=== PATIENT | male | born 1960 | race Caucasian/White ===

== ENCOUNTER → 2017-02-04 | Outpatient (CLI) | payer BC ==
[2017-02-04 10:29] LABS: ALBUMIN 3.2 GM/DL (3.2-5.2); ALBUMIN/GLOBULIN RATIO 0.73 (1.00-1.93); ALKALINE PHOSPHATASE 89 U/L (45-117); ALT/SGPT 32 U/L (12-78); ANION GAP 9 MEQ/L (8-16); AST/SGOT 23 U/L (15-37); BILIRUBIN,TOTAL 0.5 MG/DL (0.2-1.0); BLOOD UREA NITROGEN 17 MG/DL (7-18); CALCIUM LEVEL 8.9 MG/DL (8.5-10.1); CARBON DIOXIDE LEVEL 27 MEQ/L (21-32); CHLORIDE LEVEL 102 MEQ/L (98-107); CHOLESTEROL LEVEL 144 MG/DL (<200); CREATININE FOR GFR 1.18 MG/DL (0.70-1.30); GLOMERULAR FILTRATION RATE > 60.0 (>56); GLUCOSE, FASTING 107 MG/DL (70-105); POTASSIUM SERUM 4.3 MEQ/L (3.5-5.1); SODIUM LEVEL 138 MEQ/L (136-145); TOTAL PROTEIN 7.6 GM/DL (6.4-8.2); TRIGLYCERIDES LEVEL 120 MG/DL (<150)
== END ==
LOC: M WUC 08:27
PROVIDERS: ATTEND Physician Assistant
DX: E11.9 Type 2 diabetes mellitus without complications (principal); I10 Essential (primary) hypertension; E78.5 Hyperlipidemia, unspecified

== ENCOUNTER → 2017-05-06 | Outpatient (CLI) | payer BC ==
[~2017-05-06] VITALS: Ht 170.2 cm; Wt 131.5 kg
[~2017-05-06] MED LIST: BISO5TAB2 PO; LEVO50TA5 PO; LIDOCAINE 2% INJ 100 MG/5 ML SDV (FOR ANES.) As Ordered ONE; METF500T13 PO; NS 1,000 ML IV SCH; PRAV10TA3 PO; PROPOFOL 200 MG/20 ML VIAL As Ordered ONE
--- NOTE | 2017-05-06 12:29 | ROOR ---
Patient Name: Kameron Boss Procedure Date: 05/06/2017 12:04 PM Date of : 1960 Age: 56 Room: [facility] Gender: Male Note Status: Finalized Procedure: Colonoscopy Indications: Screening for colorectal malignant neoplasm Providers: Donovan PATEL MD Referring MD: EUGENE MARES Requesting Provider: Medicines: Monitored Anesthesia Care Complications: No immediate complications. Procedure: Pre-Anesthesia Assessment: - The heart rate, respiratory rate, oxygen saturations, blood pressure, adequacy of pulmonary ventilation, and response to care were monitored throughout the procedure. The Colonoscope was introduced through the anus and advanced to the cecum, identified by appendiceal orifice and ileocecal valve. The colonoscopy was performed without difficulty. The patient tolerated the procedure well. The quality of the bowel preparation was good. Findings: The perianal and digital rectal examinations were normal. A 4 mm polyp was found in the ascending colon. The polyp was sessile. The polyp was removed with a cold snare. Resection and retrieval were complete. Three semi-sessile polyps were found in the sigmoid colon. The polyps were 4 to 6 mm in size. These polyps were removed with a cold snare. Resection and retrieval were complete. To prevent bleeding after the polypectomy, one hemostatic clip was successfully placed (MR conditional). There was no bleeding at the end of the procedure. A single suture granuloma was found in the distal rectum. This was biopsied with a cold forceps for histology. Internal hemorrhoids were found during retroflexion. The hemorrhoids were medium-sized. Impression: - One 4 mm polyp in the ascending colon, removed with a cold snare. Resected and retrieved. - Three 4 to 6 mm polyps in the sigmoid colon, removed with a cold snare. Resected and retrieved. Clip (MR conditional) was placed. - Protruding polypoid fold likely represents suture granuloma/scarring related to previous anal/rectal surgery in the distal rectum. Biopsied. - Internal hemorrhoids. Recommendation: - Telephone endoscopist for pathology results in 2 weeks. - Repeat colonoscopy in 3 years for surveillance. Donovan Patel MD Donovan PATEL MD 05/06/2017 12:29:46 PM This report has been signed electronically. Number of Addenda: 0 Note Initiated On: 05/06/2017 12:04 PM Estimated Blood Loss: Estimated blood loss: none.
[2017-05-06 12:45] VITALS: BP 126/82
== END | disposition home or self-care (01) ==
LOC: M OPP 10:47
PROVIDERS: ATTEND Internal Medicine Gastroenterology
DX: Z12.11 Encounter for screening for malignant neoplasm of colon (principal); K63.5 Polyp of colon; D12.5 Benign neoplasm of sigmoid colon; K64.8 Other hemorrhoids; T81.89XA Other complications of procedures, not elsewhere classified, initial encounter; Y83.8 Other surgical procedures as the cause of abnormal reaction of the patient, or of later complication, without mention of misadventure at the time of the procedure; I10 Essential (primary) hypertension; E78.5 Hyperlipidemia, unspecified; E11.9 Type 2 diabetes mellitus without complications; E03.9 Hypothyroidism, unspecified; K21.9 Gastro-esophageal reflux disease without esophagitis; G47.30 Sleep apnea, unspecified; F17.290 Nicotine dependence, other tobacco product, uncomplicated; Z79.899 Other long term (current) drug therapy; Z79.52 Long term (current) use of systemic steroids; Z88.1 Allergy status to other antibiotic agents

== ENCOUNTER → 2017-06-17 | Outpatient (CLI) | payer BC ==
[~2017-06-17] MED LIST changes: -LIDOCAINE 2% INJ 100 MG/5 ML SDV (FOR ANES.) As Ordered ONE; -NS 1,000 ML IV SCH; -PROPOFOL 200 MG/20 ML VIAL As Ordered ONE
--- NOTE | 2017-06-17 14:20 | REP ---
SCROTAL ULTRASOUND: Real-time sonographic evaluation of the scrotum and contents performed. The testicles appear normal in size and echotexture with no mass or torsion. Right testicle measures 3.6 x 2.1 x 2.7 cm and left testicle 3.3 x 2.0 x 2.7 cm. There is a tiny cyst in the head of the right epididymis measuring 4 x 6 mm. Inferior right scrotal wall is edematous. There is reportedly an open wound in this region with a tiny amount of complex fluid just beneath the would with a diameter of 7 mm. Reportedly this wound is draining. Intrascrotal fat in this region is inflamed and edematous. There appears to be a small right inguinal hernia containing fat. IMPRESSION: Inferior right scrotum is thickened and edematous with the intrascrotal fat deep to this area also diffusely edematous. There is reportedly a draining wound in this region, and there is a very small amount of complex fluid just deep to the wound 7 mm in diameter. No testicular mass or torsion. Small right inguinal hernia contains fat. Signed by Kendell Bearden MD 06/17/2017 04:45 P
== END ==
LOC: M RAD 12:01
PROVIDERS: ATTEND Physician Assistant
DX: N50.82 Scrotal pain (principal); N50.89 Other specified disorders of the male genital organs

== ENCOUNTER 2017-09-12 10:04 | Day surgery (SDC) | payer BC ==
[~2017-09-12] VITALS: Ht 170.2 cm; Wt 125.2 kg
[2017-09-12] MEDS ORDERED: PROPOFOL 200 MG/20 ML VIAL As Ordered ONE (10:23)
[2017-09-12] MEDS ORDERED: PREV15CA18 PO (10:23)
[2017-09-12] MEDS ORDERED: LIDOCAINE 2% INJ 100 MG/5 ML SDV (FOR ANES.) As Ordered ONE (10:23)
[2017-09-12] MEDS ORDERED: NS 1,000 ML IV ONE (10:30)
--- NOTE | 2017-09-12 11:44 | ROOR ---
Patient Name: Kameron Boss Procedure Date: 09/12/2017 11:30 AM Date of : 1960 Age: 57 Room: [facility] Gender: Male Note Status: Finalized Procedure: Upper GI endoscopy Indications: Heartburn Providers: Donovan PATEL MD Referring MD: EUGENE MARES Requesting Provider: Medicines: Monitored Anesthesia Care Complications: No immediate complications. Procedure: Pre-Anesthesia Assessment: - The heart rate, respiratory rate, oxygen saturations, blood pressure, adequacy of pulmonary ventilation, and response to care were monitored throughout the procedure. The Endoscope was introduced through the mouth, and advanced to the second part of duodenum. The upper GI endoscopy was accomplished without difficulty. The patient tolerated the procedure well. Findings: The Z-line was variable and was found 38 cm from the incisors. This was biopsied with a cold forceps for histology. The examined esophagus was normal. The entire examined stomach was normal. The examined duodenum was normal. Impression: - Z-line variable, 38 cm from the incisors. Biopsied to r/o short segment barretts. - Normal esophagus. - Normal stomach. - Normal examined duodenum. Recommendation: - Continue present medications. - Await pathology results. - Telephone endoscopist for pathology results in 2 weeks. Donovan Patel MD Donovan PATEL MD 09/12/2017 11:44:12 AM This report has been signed electronically. Number of Addenda: 0 Note Initiated On: 09/12/2017 11:30 AM Estimated Blood Loss: Estimated blood loss: none.
[2017-09-12 12:05] VITALS: BP 124/72
== END 2017-09-12 12:25 | disposition home or self-care (01) ==
LOC: M OPP 10:04
PROVIDERS: ATTEND Internal Medicine Gastroenterology
DX: R12 Heartburn (principal); R07.89 Other chest pain; K22.8 Other specified diseases of esophagus; I10 Essential (primary) hypertension; E78.5 Hyperlipidemia, unspecified; E11.9 Type 2 diabetes mellitus without complications; E03.9 Hypothyroidism, unspecified; K21.9 Gastro-esophageal reflux disease without esophagitis; R06.83 Snoring; G47.30 Sleep apnea, unspecified; Z87.442 Personal history of urinary calculi; F17.290 Nicotine dependence, other tobacco product, uncomplicated; Z88.1 Allergy status to other antibiotic agents; Z79.899 Other long term (current) drug therapy; Z80.3 Family history of malignant neoplasm of breast

== ENCOUNTER → 2018-09-03 | Outpatient (CLI) | payer BC | LOC: M WUC 14:34 | DX: R01.1 Cardiac murmur, unspecified (principal); I35.9 Nonrheumatic aortic valve disorder, unspecified; I10 Essential (primary) hypertension | CPT/HCPCS: 71046 ==

== ENCOUNTER → 2018-10-22 | Outpatient (REF) | payer BC ==
[~2018-10-22] MED LIST changes: +PREV15CA18 PO
== END ==
LOC: M LAB REF 11:41
PROVIDERS: ATTEND Physician Assistant
DX: J02.9 Acute pharyngitis, unspecified (principal)

== ENCOUNTER → 2019-07-19 | Outpatient (CLI) | payer BC ==
--- NOTE | 2019-07-20 02:13 | REP ---
Clinical: Pain. Technique: AP, lateral, bilateral oblique and sunrise views of the right knee. Findings: Mild/early moderate arthritic changes include subchondral sclerosis, minimal joint space narrowing, subtle early marginal spurring/osteophyte formation involving the tibiofemoral joint as well as subchondral sclerosis, minimal joint space narrowing, lateral osteophyte, and anterior fraying involving the patella and patellofemoral joint. No acute fracture or dislocation. No definite effusion. Impression: Mild/early moderate tricompartmental arthritic degenerative changes Electronically Signed by Shan Juarez MD 07/20/2019 02:04 A
== END ==
LOC: M WUC 14:10
PROVIDERS: ATTEND Physician Assistant
DX: M17.11 Unilateral primary osteoarthritis, right knee (principal)

== ENCOUNTER → 2020-08-15 | Outpatient (CLI) | payer BC ==
--- NOTE | 2020-08-15 12:51 | REP ---
INDICATION: SOB WITH EXERTION COMPARISON: 09/03/2018 TECHNIQUE: PA and lateral. FINDINGS: The mediastinum and cardiac silhouette are normal. The lung martinez are clear and without acute consolidation, effusion, or pneumothorax. The skeletal structures are intact and normal. IMPRESSION: No acute cardiopulmonary process. If the patient remains symptomatic consider chest CT for further investigation. <Electronically signed by Shan Juarez > 08/15/20 [id number]
== END ==
LOC: M WUC 12:23
PROVIDERS: ATTEND Physician Assistant
DX: R06.02 Shortness of breath (principal)

== ENCOUNTER → 2020-09-04 | Outpatient (CLI) | payer BC | LOC: M LABSMTC 12:34 | PROVIDERS: ATTEND Anesthesiology | DX: Z01.812 Encounter for preprocedural laboratory examination (principal); Z20.828 Contact with and (suspected) exposure to other viral communicable diseases | CPT/HCPCS: C9803; U0003 ==

== ENCOUNTER 2020-09-07 07:03 | Day surgery (SDC) | payer BC ==
[~2020-09-07] VITALS: Ht 170.2 cm; Wt 106.1 kg
[~2020-09-07 07:03] MED LIST changes: +NS 1,000 ML IV ONE
[2020-09-07] MEDS ORDERED: propofoL 200 MG/20 ML VIAL As Ordered ONE (07:11)
[2020-09-07] MEDS ORDERED: LIDOCAINE 2% 100MG/5ML SDV (FOR ANES.) As Ordered ONE (07:11)
--- NOTE | 2020-09-07 07:59 | ROOR ---
Patient Name: Kameron Boss Procedure Date: 09/07/2020 7:37 AM Date of : 1960 Age: 60 Room: [facility] Gender: Male Note Status: Finalized Procedure: Colonoscopy Indications: High risk colon cancer surveillance: Personal history of colonic polyps, Last colonoscopy: April 2017 Providers: Donovan PATEL MD Referring MD: EUGENE MARES Requesting Provider: Medicines: Monitored Anesthesia Care Complications: No immediate complications. Procedure: Pre-Anesthesia Assessment: - The heart rate, respiratory rate, oxygen saturations, blood pressure, adequacy of pulmonary ventilation, and response to care were monitored throughout the procedure. The Colonoscope was introduced through the anus and advanced to the terminal ileum, with identification of the appendiceal orifice and IC valve. The colonoscopy was performed without difficulty. The patient tolerated the procedure well. The quality of the bowel preparation was good. Findings: The perianal and digital rectal examinations were normal. A 10 mm polypoid lesion was found in the distal rectum. The lesion was hyperplastic. This was biopsied with a cold forceps for histology. Mild sigmoid diverticulosis and small internal hemorrhoids. The exam was otherwise without abnormality. Impression: - Benign polypoid lesion in the distal rectum (likely surgical scar/granulation tissue). Biopsied. - Mild sigmoid diverticulosis and small internal hemorrhoids. - The examination was otherwise normal. Recommendation: - Repeat colonoscopy in 5 years for surveillance. Donovan Ptael MD Donovan PATEL MD 09/07/2020 7:58:32 AM Electronically signed by Donovan PATEL MD Number of Addenda: 0 Note Initiated On: 09/07/2020 7:37 AM Estimated Blood Loss: Estimated blood loss: none.
[2020-09-07 08:28] VITALS: BP 100/60
== END 2020-09-07 08:50 | disposition home or self-care (01) ==
LOC: M OPP 07:03
PROVIDERS: ATTEND Internal Medicine Gastroenterology
DX: Z12.11 Encounter for screening for malignant neoplasm of colon (principal); Z86.010 Personal history of colon polyps; D12.8 Benign neoplasm of rectum; K57.30 Diverticulosis of large intestine without perforation or abscess without bleeding; K64.8 Other hemorrhoids; E11.9 Type 2 diabetes mellitus without complications; G47.30 Sleep apnea, unspecified; Z79.899 Other long term (current) drug therapy; Z88.1 Allergy status to other antibiotic agents; F17.210 Nicotine dependence, cigarettes, uncomplicated

== ENCOUNTER → 2023-01-27 | Outpatient (REF) | payer BC ==
[~2023-01-27] MED LIST changes: +BISO1TAB18 PO; -BISO5TAB2 PO; -NS 1,000 ML IV ONE; -PREV15CA18 PO; +PREV15CA24 PO
[2023-01-27 12:26] LABS: HEMATOCRIT 44.7 % (42.0-52.0); HEMOGLOBIN 14.8 g/dl (13.5-17.5); MEAN CORPUSCULAR HEMOGLOBIN 31.3 pg (27.0-33.0); MEAN CORPUSCULAR HGB CONC 33.1 g/dl (32.0-36.5); MEAN CORPUSCULAR VOLUME 94.5 fl (80.0-96.0); PLATELET COUNT, AUTOMATED 182 10^3/uL (150-450); RED BLOOD COUNT 4.73 10^6/uL (4.30-6.10); WHITE BLOOD COUNT 4.4 10^3/uL (4.0-10.0)
[2023-01-27 12:33] LABS: APPEARANCE, URINE HAZY (CLEAR); BACTERIA, URINE AUTO 1+ (NEGATIVE); BILIRUBIN, URINE AUTO NEGATIVE (NEGATIVE); BLOOD, URINE BLOOD 2+ (NEGATIVE); COLOR, URINE YELLOW (YELLOW); GLUCOSE, URINE (UA) AUTO NEGATIVE (NEGATIVE); KETONE, URINE AUTO NEGATIVE (NEGATIVE); LEUKOCYTE ESTERASE, URINE AUTO 3+ (NEGATIVE); MUCUS, URINE SMALL (NEGATIVE); NITRITE, URINE AUTO POSITIVE (NEGATIVE); PROTEIN, URINE AUTO NEGATIVE (NEGATIVE); RBC, URINE AUTO 18 /HPF (0-3); SPECIFIC GRAVITY URINE AUTO 1.011 (1.002-1.035); SQUAMOUS EPITHELIAL CELL UR AU 0 /HPF (0-6); UROBILINOGEN, URINE AUTO 0.2 mg/dL (0.0-2.0); WBC, URINE AUTO 100 /HPF (0-3)
[2023-01-27 13:29] LABS: ALBUMIN 3.6 G/DL (3.2-5.2); ALKALINE PHOSPHATASE 95 U/L (46-116); ALT/SGPT 26 U/L (7.0-40); AST/SGOT 18 U/L (<34); BILIRUBIN,TOTAL 0.5 MG/DL (0.3-1.2); BLOOD UREA NITROGEN 17 MG/DL (9-23); CALCIUM LEVEL 9.3 MG/DL (8.3-10.6); CARBON DIOXIDE LEVEL 28 MMOL/L (20-31); CHLORIDE LEVEL 103 MMOL/L (98-107); CHOLESTEROL LEVEL 185 MG/DL (<200); CHOLESTEROL RISK RATIO 2.81 (<5); CREATININE FOR GFR 0.99 MG/DL (0.70-1.30); GLOMERULAR FILTRATION RATE > 60.0 (>49); GLUCOSE, FASTING 86 MG/DL (74-106); HDL CHOLESTEROL 65.8 MG/DL (>40); NON-HDL-C 119.2 MG/DL; POTASSIUM SERUM 5.2 MMOL/L (3.5-5.1); PROSTATIC SPECIFIC AG MONITOR 0.86 NG/ML (< 4.00); SODIUM LEVEL 136 MMOL/L (136-145)
[2023-01-27 14:44] LABS: THYROID STIMULATING HORMONE 2.295 uIU/ML (0.55-4.78)
[2023-01-27 19:03] LABS: LDL CHOLESTEROL 105.2 MG/DL (<100); TOTAL PROTEIN 6.9 G/DL (5.7-8.2); TRIGLYCERIDES LEVEL 70 MG/DL (<150)
== END ==
LOC: M LABDRAWC 10:55
PROVIDERS: ATTEND Physician Assistant
DX: E78.5 Hyperlipidemia, unspecified (principal); E03.9 Hypothyroidism, unspecified; R35.1 Nocturia

== ENCOUNTER → 2023-08-07 | Outpatient (REF) | payer BC ==
[2023-08-07 18:30] LABS: HEMATOCRIT 41.9 % (42.0-52.0); HEMOGLOBIN 14.4 g/dl (13.5-17.5); MEAN CORPUSCULAR HEMOGLOBIN 31.8 pg (27.0-33.0); MEAN CORPUSCULAR HGB CONC 34.4 g/dl (32.0-36.5); MEAN CORPUSCULAR VOLUME 92.5 fl (80.0-96.0); PLATELET COUNT, AUTOMATED 246 10^3/uL (150-450); RED BLOOD COUNT 4.53 10^6/uL (4.30-6.10)
[2023-08-07 18:42] LABS: ALBUMIN 3.6 G/DL (3.2-5.2); ALKALINE PHOSPHATASE 115 U/L (46-116); ALT/SGPT 22 U/L (7.0-40); AST/SGOT 19 U/L (<34); BILIRUBIN,TOTAL 0.4 MG/DL (0.3-1.2); BLOOD UREA NITROGEN 14 MG/DL (9-23); CALCIUM LEVEL 9.9 MG/DL (8.3-10.6); CARBON DIOXIDE LEVEL 27 MMOL/L (20-31); CHLORIDE LEVEL 102 MMOL/L (98-107); CHOLESTEROL LEVEL 172 MG/DL (<200); CREATININE FOR GFR 1.09 MG/DL (0.70-1.30); GLOMERULAR FILTRATION RATE > 60.0 (>49); GLUCOSE, FASTING 103 MG/DL (74-106); HDL CHOLESTEROL 61.3 MG/DL (>40); LDL CHOLESTEROL 90.5 MG/DL (<100); NON-HDL-C 110.7 MG/DL; POTASSIUM SERUM 4.4 MMOL/L (3.5-5.1); SODIUM LEVEL 137 MMOL/L (136-145); THYROID STIMULATING HORMONE 2.304 uIU/ML (0.55-4.78); TOTAL PROTEIN 7.7 G/DL (5.7-8.2); TRIGLYCERIDES LEVEL 101 MG/DL (<150)
== END ==
LOC: M LABDRAWC 17:35
PROVIDERS: ATTEND Physician Assistant
DX: E03.9 Hypothyroidism, unspecified (principal); E78.5 Hyperlipidemia, unspecified

== ENCOUNTER → 2024-01-15 | Outpatient (REF) | payer BC ==
[2024-01-15 12:00] LABS: APPEARANCE, URINE HAZY (CLEAR); BACTERIA, URINE AUTO 2+ (NEGATIVE); BILIRUBIN, URINE AUTO NEGATIVE (NEGATIVE); BLOOD, URINE BLOOD 2+ (NEGATIVE); COLOR, URINE YELLOW (YELLOW); GLUCOSE, URINE (UA) AUTO NEGATIVE (NEGATIVE); HEMATOCRIT 44.2 % (42.0-52.0); HEMOGLOBIN 15.1 g/dl (13.5-17.5); KETONE, URINE AUTO NEGATIVE (NEGATIVE); LEUKOCYTE ESTERASE, URINE AUTO 3+ (NEGATIVE); MEAN CORPUSCULAR HEMOGLOBIN 31.1 pg (27.0-33.0); MEAN CORPUSCULAR HGB CONC 34.2 g/dl (32.0-36.5); MEAN CORPUSCULAR VOLUME 90.9 fl (80.0-96.0); NITRITE, URINE AUTO NEGATIVE (NEGATIVE); PLATELET COUNT, AUTOMATED 250 10^3/uL (150-450); PROTEIN, URINE AUTO NEGATIVE (NEGATIVE); RBC, URINE AUTO 8 /HPF (0-3); RED BLOOD COUNT 4.86 10^6/uL (4.30-6.10); SQUAMOUS EPITHELIAL CELL UR AU 0 /HPF (0-6); UROBILINOGEN, URINE AUTO 0.2 mg/dL (0.0-2.0); WBC, URINE AUTO 137 /HPF (0-3); WHITE BLOOD COUNT 5.9 10^3/uL (4.0-10.0)
[2024-01-15 12:26] LABS: PROSTATIC SPECIFIC AG MONITOR 0.52 NG/ML (< 4.00)
[2024-01-15 12:30] LABS: ALBUMIN 3.6 G/DL (3.2-5.2); ALKALINE PHOSPHATASE 99 U/L (46-116); ALT/SGPT 20 U/L (7.0-40); AST/SGOT 15 U/L (<34); BILIRUBIN,TOTAL 0.5 MG/DL (0.3-1.2); BLOOD UREA NITROGEN 16 MG/DL (9-23); CALCIUM LEVEL 9.6 MG/DL (8.3-10.6); CARBON DIOXIDE LEVEL 29 MMOL/L (20-31); CHLORIDE LEVEL 106 MMOL/L (98-107); CHOLESTEROL LEVEL 174 MG/DL (<200); CREATININE FOR GFR 1.07 MG/DL (0.70-1.30); GLOMERULAR FILTRATION RATE > 60.0 (>49); GLUCOSE, FASTING 97 MG/DL (74-106); HDL CHOLESTEROL 52.6 MG/DL (>40); LDL CHOLESTEROL 110.2 MG/DL (<100); NON-HDL-C 121.4 MG/DL; POTASSIUM SERUM 5.1 MMOL/L (3.5-5.1); SODIUM LEVEL 137 MMOL/L (136-145); TOTAL PROTEIN 7.6 G/DL (5.7-8.2); TRIGLYCERIDES LEVEL 56 MG/DL (<150)
[2024-01-15 12:31] LABS: THYROID STIMULATING HORMONE 2.531 uIU/ML (0.55-4.78)
== END ==
LOC: M LABDRAWC 11:09
PROVIDERS: ATTEND Physician Assistant
DX: E03.9 Hypothyroidism, unspecified (principal); E78.5 Hyperlipidemia, unspecified; R35.1 Nocturia

== ENCOUNTER → 2024-06-17 | Outpatient (CLI) | payer BC | LOC: M PLALAB 14:28 → M PLAIMG 14:28 | PROVIDERS: ATTEND Physician Assistant | DX: R05.3 Chronic cough (principal); R06.02 Shortness of breath ==

== ENCOUNTER → 2025-01-04 | Outpatient (REF) | payer BC ==
[2025-01-04 13:24] LABS: HEMATOCRIT 44.6 % (42.0-52.0); MEAN CORPUSCULAR HEMOGLOBIN 31.1 pg (27.0-33.0); MEAN CORPUSCULAR HGB CONC 33.6 g/dl (32.0-36.5); MEAN CORPUSCULAR VOLUME 92.5 fl (80.0-96.0); PLATELET COUNT, AUTOMATED 294 10^3/uL (150-450); RED BLOOD COUNT 4.82 10^6/uL (4.30-6.10); WHITE BLOOD COUNT 7.8 10^3/uL (4.0-10.0)
[2025-01-04 13:30] LABS: APPEARANCE, URINE CLOUDY (CLEAR); BACTERIA, URINE AUTO 2+ (NEGATIVE); BILIRUBIN, URINE AUTO NEGATIVE (NEGATIVE); BLOOD, URINE BLOOD 1+ (NEGATIVE); COLOR, URINE YELLOW (YELLOW); GLUCOSE, URINE (UA) AUTO NEGATIVE (NEGATIVE); KETONE, URINE AUTO NEGATIVE (NEGATIVE); LEUKOCYTE ESTERASE, URINE AUTO 3+ (NEGATIVE); MUCUS, URINE SMALL (NEGATIVE); NITRITE, URINE AUTO NEGATIVE (NEGATIVE); PROTEIN, URINE AUTO NEGATIVE (NEGATIVE); RBC, URINE AUTO 4 /HPF (0-3); SQUAMOUS EPITHELIAL CELL UR AU 1 /HPF (0-6); UROBILINOGEN, URINE AUTO 0.2 mg/dL (0.0-2.0); WBC, URINE AUTO TNTC /HPF (0-3)
[2025-01-04 13:52] LABS: ALBUMIN 3.7 G/DL (3.2-5.2); ALKALINE PHOSPHATASE 107 U/L (40-129); ALT/SGPT 25 U/L (7.0-40); AST/SGOT 16 U/L (<34); BILIRUBIN,TOTAL 0.8 MG/DL (0.3-1.2); BLOOD UREA NITROGEN 14 MG/DL (9-23); CALCIUM LEVEL 9.9 MG/DL (8.3-10.6); CARBON DIOXIDE LEVEL 30 MMOL/L (20-31); CHLORIDE LEVEL 100 MMOL/L (98-107); CHOLESTEROL LEVEL 199 MG/DL (<200); CHOLESTEROL RISK RATIO 3.32 (<5); CREATININE FOR GFR 1.14 MG/DL (0.70-1.30); GLOMERULAR FILTRATION RATE > 60.0 (>49); GLUCOSE, FASTING 92 MG/DL (74-106); HDL CHOLESTEROL 59.8 MG/DL (>40); LDL CHOLESTEROL 118.8 MG/DL (<100); NON-HDL-C 139.2 MG/DL; POTASSIUM SERUM 4.5 MMOL/L (3.5-5.1); PROSTATIC SPECIFIC AG MONITOR 0.61 NG/ML (< 4.00); SODIUM LEVEL 138 MMOL/L (136-145); TOTAL PROTEIN 8.2 G/DL (5.7-8.2); TRIGLYCERIDES LEVEL 102 MG/DL (<150)
[2025-01-04 13:53] LABS: THYROID STIMULATING HORMONE 3.067 uIU/ML (0.55-4.78)
== END ==
LOC: M LABDRAWC 12:05
PROVIDERS: ATTEND Physician Assistant
DX: R35.1 Nocturia (principal); E78.5 Hyperlipidemia, unspecified; E03.9 Hypothyroidism, unspecified; H90.2 Conductive hearing loss, unspecified

== ENCOUNTER → 2025-03-03 | Outpatient (REF) | payer BC ==
[2025-03-03 18:10] LABS: APPEARANCE, URINE CLOUDY (CLEAR); BACTERIA, URINE AUTO 1+ (NEGATIVE); BILIRUBIN, URINE AUTO NEGATIVE (NEGATIVE); BLOOD, URINE BLOOD 1+ (NEGATIVE); COLOR, URINE YELLOW (YELLOW); GLUCOSE, URINE (UA) AUTO NEGATIVE (NEGATIVE); KETONE, URINE AUTO NEGATIVE (NEGATIVE); LEUKOCYTE ESTERASE, URINE AUTO 3+ (NEGATIVE); MUCUS, URINE SMALL (NEGATIVE); NITRITE, URINE AUTO NEGATIVE (NEGATIVE); PROTEIN, URINE AUTO NEGATIVE (NEGATIVE); RBC, URINE AUTO 3 /HPF (0-3); SPECIFIC GRAVITY URINE AUTO 1.008 (1.002-1.035); SQUAMOUS EPITHELIAL CELL UR AU 1 /HPF (0-6); UROBILINOGEN, URINE AUTO 0.2 mg/dL (0.0-2.0); WBC, URINE AUTO 108 /HPF (0-3)
== END ==
LOC: M LAB REF 16:47
PROVIDERS: ATTEND Physician Assistant
DX: N39.0 Urinary tract infection, site not specified (principal)

== ENCOUNTER → 2025-03-16 | Outpatient (CLI) | payer BC | LOC: M PLAIMG 12:40 | PROVIDERS: ATTEND Physician Assistant | DX: N20.0 Calculus of kidney (principal) ==

== ENCOUNTER → 2025-05-03 | Outpatient (CLI) | payer BC ==
[~2025-05-03] MED LIST changes: -PRAV10TA3 PO; +PRAV10TA43 PO
== END ==
LOC: M CARPUL 08:56
PROVIDERS: ATTEND Internal Medicine Cardiovascular Disease
DX: R07.9 Chest pain, unspecified (principal); I25.10 Atherosclerotic heart disease of native coronary artery without angina pectoris

== ENCOUNTER → 2025-06-22 | Outpatient (CLI) | payer BC ==
[~2025-06-22] MED LIST changes: +AMOX875T2 PO; +ATOR1TAB19 PO; +LANS15CA PO; +TREL1AER INH; +VALS1TAB66 PO
[2025-06-22 12:17] LABS: PLATELET COUNT, AUTOMATED 306 10^3/uL (150-450)
[2025-06-22 12:21] LABS: APPEARANCE, URINE CLOUDY (CLEAR); BACTERIA, URINE AUTO 1+ (NEGATIVE); BILIRUBIN, URINE AUTO NEGATIVE (NEGATIVE); BLOOD, URINE BLOOD 2+ (NEGATIVE); GLUCOSE, URINE (UA) AUTO NEGATIVE (NEGATIVE); KETONE, URINE AUTO NEGATIVE (NEGATIVE); LEUKOCYTE ESTERASE, URINE AUTO 3+ (NEGATIVE); MUCUS, URINE SMALL (NEGATIVE); NITRITE, URINE AUTO NEGATIVE (NEGATIVE); PROTEIN, URINE AUTO NEGATIVE (NEGATIVE); RBC, URINE AUTO 11 /HPF (0-3); SPECIFIC GRAVITY URINE AUTO 1.008 (1.002-1.035); SQUAMOUS EPITHELIAL CELL UR AU 1 /HPF (0-6); UROBILINOGEN, URINE AUTO 0.2 mg/dL (0.0-2.0); WBC, URINE AUTO TNTC /HPF (0-3)
[2025-06-22 12:23] LABS: CALCIUM LEVEL 9.8 MG/DL (8.3-10.6); CARBON DIOXIDE LEVEL 29.0 MMOL/L (20-31); CHLORIDE LEVEL 101.0 MMOL/L (98-107); CREATININE FOR GFR 1.1 MG/DL (0.70-1.30); GLOMERULAR FILTRATION RATE 75.9 (>49); POTASSIUM SERUM 4.8 MMOL/L (3.5-5.1); SODIUM LEVEL 140.0 MMOL/L (136-145)
== END ==
LOC: M WUC 08:23
PROVIDERS: ATTEND Physician Assistant
DX: Z01.818 Encounter for other preprocedural examination (principal)

== ENCOUNTER → 2025-06-22 | Outpatient (CLI) | payer BC ==
[2025-06-22 12:23] LABS: ALT/SGPT 24.0 U/L (7.0-40); AST/SGOT 22.0 U/L (<34); CALCIUM LEVEL 9.6 MG/DL (8.3-10.6); CARBON DIOXIDE LEVEL 29.0 MMOL/L (20-31); CHLORIDE LEVEL 100.0 MMOL/L (98-107); CHOLESTEROL LEVEL 144.0 MG/DL (<200); CHOLESTEROL RISK RATIO 2.46 (<5); CREATININE FOR GFR 1.08 MG/DL (0.70-1.30); GLOMERULAR FILTRATION RATE 77.6 (>49); LDL CHOLESTEROL 68.1 MG/DL (<100); NON-HDL-C 85.7 MG/DL; POTASSIUM SERUM 4.5 MMOL/L (3.5-5.1); SODIUM LEVEL 138.0 MMOL/L (136-145); TRIGLYCERIDES LEVEL 88.0 MG/DL (<150)
== END ==
LOC: M WUC 08:26
PROVIDERS: ATTEND Registered Nurse
DX: E78.5 Hyperlipidemia, unspecified (principal)

== ENCOUNTER 2025-06-30 08:24 | Day surgery (SDC) | payer BC ==
[~2025-06-30] VITALS: Ht 170.2 cm; Wt 101.8 kg
[~2025-06-30 08:24] MED LIST changes: -AMOX875T2 PO
[2025-06-30] MEDS ORDERED: MIDAZOLAM INJ 2 MG/2 ML VIAL As Ordered ONE (09:08)
[2025-06-30] MEDS ORDERED: KETAMINE HCL 200 MG/20 ML VIAL As Ordered ONE (09:08)
[2025-06-30] MEDS ORDERED: LIDOCAINE 2% 100 MG/5 ML SDV (FOR ANES.) As Ordered ONE (09:09)
[2025-06-30] MEDS ORDERED: ACETAMINOPHEN 1000MG/100ML IV BAG As Ordered ONE (09:09)
[2025-06-30] MEDS ORDERED: ONDANSETRON 4MG 2ML VIAL As Ordered ONE (09:09)
[2025-06-30] MEDS ORDERED: GLYCOPYRROLATE INJ 0.2 MG/ML 2 ML VIAL As Ordered ONE (09:09)
[2025-06-30] MEDS ORDERED: AMOX875T2 PO (09:27)
[2025-06-30] MEDS: LR 1,000 ML IV SCH (09:35)
[2025-06-30] MEDS: ceFAZolin SOD 2 GM IV ONCE IV ONE (09:50)
[2025-06-30 10:50] VITALS: BP 120/75; TEMP 97.5; O2SAT 99
== END 2025-06-30 12:09 | disposition home or self-care (01) ==
LOC: M SDC 08:24
PROVIDERS: ATTEND Urology
DX: N20.0 Calculus of kidney (principal); I10 Essential (primary) hypertension; E03.9 Hypothyroidism, unspecified; E78.00 Pure hypercholesterolemia, unspecified; G47.30 Sleep apnea, unspecified; Z79.890 Hormone replacement therapy; Z79.82 Long term (current) use of aspirin; Z79.899 Other long term (current) drug therapy; Z88.1 Allergy status to other antibiotic agents; Z90.89 Acquired absence of other organs
CPT/HCPCS: 50590; 74018; J0131; J0690; J1596; J2250; J2405; J3010

== ENCOUNTER → 2025-07-11 | Outpatient (CLI) | payer BC ==
[~2025-07-11] MED LIST changes: +AMOX875T2 PO
== END ==
LOC: M WUC 15:10
PROVIDERS: ATTEND Physician Assistant
DX: N20.0 Calculus of kidney (principal)

== ENCOUNTER → 2025-07-18 | Outpatient (REF) | payer BC | LOC: M SMT 12:52 | PROVIDERS: ATTEND Physician Assistant | DX: N20.0 Calculus of kidney (principal) ==

== ENCOUNTER → 2025-08-02 | Outpatient (CLI) | payer BC | LOC: M CARPUL 11:02 | PROVIDERS: ATTEND Registered Nurse | DX: I71.21 Aneurysm of the ascending aorta, without rupture (principal); I35.8 Other nonrheumatic aortic valve disorders ==

== ENCOUNTER → 2025-09-26 | Outpatient (REF) | payer BC | LOC: M LAB REF 16:57 | PROVIDERS: ATTEND Student in an Organized Health Care Education/Training Program | DX: E11.22 Type 2 diabetes mellitus with diabetic chronic kidney disease (principal); N20.0 Calculus of kidney ==